=== PATIENT | male | born 1950 | race American Indian/Alaskan Native ===

== ENCOUNTER 2018-07-18 10:10 | Outpatient (CLI) | payer OTHER ==
--- NOTE | 2018-07-18 11:10 | XRay Report ---
RIGHT SHOULDER, 3 VIEWS: HISTORY: Strain of the muscles and tendons. Normal bone mineralization. No acute osseous injury is identified. Moderate degenerative changes are noted at the a.c. joint. No bone lesion or ligamentous injury. The soft tissues are unremarkable. IMPRESSION: Mild acromioclavicular osteoarthritis.
== END 2018-07-18 10:11 | disposition home or self-care (01) ==
LOC: XRAY 10:10
PROVIDERS: ATTEND Internal Medicine
DX: M19.011 Primary osteoarthritis, right shoulder (principal)